=== PATIENT | female | born 1940 | race Caucasian/White ===

== ENCOUNTER 2016-11-04 14:38 | Inpatient (IN) | payer OTHER ==
[~2016-11-04] VITALS: Ht 162.6 cm; Wt 54.0 kg
[~2016-11-04 14:38] MED LIST: ACID CONTROLLER20 MG PO; ADULT LOW DOSE81 MG PO; ALPRAZOLAM0.5 MG PO; AMARYL 2MG TABLE2 MG PO; AMITIZA 24 MCG24 MCG PO; AMITIZA24 MCG PO; BRILINTA 90 MG90 MG PO; COREG3.125 MG PO; DIGOXIN125 MCG PO; LIPITOR TAB 2020 MG PO; LISINOPRIL2.5 MG PO; LORCET 5-325 M1 EACH PO; LORTAB 7.5-3251 EACH PO; METOPROLOL SUCC25 MG PO; MIDODRINE HCL5 MG PO; NEPRO CARB ST1000 ML PO; PHENERGAN 25 MG25 M1 PO; PROAMATINE 2.52.5 MG PO; PROTONIX 40 MG40 M1 PO; PROVENTIL HFA 61 INH INH; TRAMADOL HCL50 MG PO; ZOFRAN 4 MG TAB4 MG PO
[2016-11-04] MEDS ORDERED: PROVENTIL HFA 61 INH INH (18:11)
[2016-11-04] MEDS ORDERED: DOXYCYCLINE MO100 M1 PO (18:13)
[2016-11-04] MEDS ORDERED: FUROSEMIDE20 MG PO (18:14)
--- NOTE | 2016-11-05 07:23 | NUR ---
RECEIVED REPORT PATIENT REFUSED LABS THIS MORNING. WILL TRY TO ENCOURAGE
[2016-11-05 09:57] LABS: HEMOGLOBIN 8.8 gm/dl (12.3-15.3); RED BLOOD COUNT 2.91 M/UL (4.00-5.10); WHITE BLOOD COUNT 5.9 K/UL (4.5-11.0)
--- NOTE | 2016-11-05 12:31 | NUR ---
REPORTED LABS TO DR. WRIGHT AND ACKNOWLEDGED
[2016-11-08 06:26] LABS: HEMOGLOBIN 8.8 gm/dl (12.3-15.3); RED BLOOD COUNT 2.97 M/UL (4.00-5.10); WHITE BLOOD COUNT 6.4 K/UL (4.5-11.0)
[2016-11-10 06:07] LABS: RED BLOOD COUNT 3.02 M/UL (4.00-5.10); WHITE BLOOD COUNT 6.9 K/UL (4.5-11.0)
[2016-11-13 04:55] LABS: HEMOGLOBIN 8.3 gm/dl (12.3-15.3); RED BLOOD COUNT 2.78 M/UL (4.00-5.10); WHITE BLOOD COUNT 5.8 K/UL (4.5-11.0)
[2017-04-01] MEDS ORDERED: LANOXIN TAB0.125 MG PO (05:55)
[2017-04-01] MEDS ORDERED: PROTONIX40 MG PO (05:56)
[2017-04-01] MEDS ORDERED: SERTRALINE HCL25 MG PO (05:57)
[2017-04-01] MEDS ORDERED: BUMETANIDE2 MG PO (05:57)
[2017-04-01] MEDS ORDERED: ELIQUIS 5 MG TAB5 MG GT (05:58)
[2017-04-01] MEDS ORDERED: LORTAB 7.5-3251 EACH PO (06:00)
== END 2016-11-13 10:30 | DRG 291 ==
LOC: M/S 14:38
PROVIDERS: Hospitalist; Internal Medicine; ADMIT Internal Medicine Infectious Disease
PROC: 30233N1 Transfusion of Nonautologous Red Blood Cells into Peripheral Vein, Percutaneous Approach (ICD-10-PCS; principal; 2016-11-04)
PROC: 5A1D60Z (ICD-10-PCS; 2016-11-04)
DX: I50.23 Acute on chronic systolic (congestive) heart failure (principal); N18.6 End stage renal disease; E43 Unspecified severe protein-calorie malnutrition; K52.1 Toxic gastroenteritis and colitis; E87.1 Hypo-osmolality and hyponatremia; D50.9 Iron deficiency anemia, unspecified; Z99.2 Dependence on renal dialysis; R53.1 Weakness; I25.10 Atherosclerotic heart disease of native coronary artery without angina pectoris; I25.5 Ischemic cardiomyopathy; E87.5 Hyperkalemia; Z88.0 Allergy status to penicillin; Z88.2 Allergy status to sulfonamides; Z88.8 Allergy status to other drugs, medicaments and biological substances; R53.83 Other fatigue; T50.905A Adverse effect of unspecified drugs, medicaments and biological substances, initial encounter; T47.3X5A Adverse effect of saline and osmotic laxatives, initial encounter; Z95.5 Presence of coronary angioplasty implant and graft; F41.9 Anxiety disorder, unspecified; Z79.899 Other long term (current) drug therapy; I73.9 Peripheral vascular disease, unspecified; E11.51 Type 2 diabetes mellitus with diabetic peripheral angiopathy without gangrene; E11.22 Type 2 diabetes mellitus with diabetic chronic kidney disease; D63.1 Anemia in chronic kidney disease
CPT/HCPCS: 36415; 36430; 71010; 80048; 80053; 82270; 82272; 82607; 82728; 82962; 83036; 83540; 83550; 84132; 84443; 85014; 85018; 85027; 86850; 86900; 86901; 86920; 90937; 94640; 94760; 97110; 97530; 97535; J1756; J2550; J7050; P9016; P9047; Q4081

== ENCOUNTER 2016-12-02 20:24 | Inpatient (IN) | payer OTHER ==
[~2016-12-02] VITALS: Ht 162.6 cm; Wt 54.0 kg
[~2016-12-02 20:24] MED LIST changes: +DOXYCYCLINE MO100 M1 PO; +FUROSEMIDE20 MG PO
[2016-12-04 05:46] LABS: HEMOGLOBIN 10.8 gm/dl (12.3-15.3); RED BLOOD COUNT 3.68 M/UL (4.00-5.10); WHITE BLOOD COUNT 4.1 K/UL (4.5-11.0)
--- NOTE | 2016-12-05 04:59 | NUR ---
patient just refused am lab draw
[2016-12-05 13:01] LABS: HEMOGLOBIN 10.6 gm/dl (12.3-15.3); RED BLOOD COUNT 3.67 M/UL (4.00-5.10); WHITE BLOOD COUNT 5.1 K/UL (4.5-11.0)
[2016-12-06 06:43] LABS: HEMOGLOBIN 9.5 gm/dl (12.3-15.3); RED BLOOD COUNT 3.32 M/UL (4.00-5.10); WHITE BLOOD COUNT 5.1 K/UL (4.5-11.0)
[2016-12-08 04:12] LABS: RED BLOOD COUNT 3.13 M/UL (4.00-5.10)
[2016-12-08 04:31] LABS: WHITE BLOOD COUNT 3.7 K/UL (4.5-11.0)
[2016-12-08] MEDS ORDERED: ASPIR-LOW81 MG PO (17:45)
[2016-12-08] MEDS ORDERED: FERROUS SULFAT325 MG PO (17:45)
--- NOTE | 2016-12-08 18:12 | NUR ---
SPOKE WITH ALARM MECHANISM ADJUSTER ABOUT PLACEMENT FOR PT IN [facility], AFTER SHE SPOKE WITH FAMILY AND PT, SHE SAID IT WAS OK FOR PT TO BE DC HOME IN CARE OF SON. PT SON IS IN ROOM CONTACTED PRIMARY MD, PT CAN GO HOME AFTER DIALYSIS TREATMENT.
[2017-04-01] MEDS ORDERED: LANOXIN TAB0.125 MG PO (05:55)
[2017-04-01] MEDS ORDERED: PROTONIX40 MG PO (05:56)
[2017-04-01] MEDS ORDERED: SERTRALINE HCL25 MG PO (05:57)
[2017-04-01] MEDS ORDERED: BUMETANIDE2 MG PO (05:57)
[2017-04-01] MEDS ORDERED: ELIQUIS 5 MG TAB5 MG GT (05:58)
[2017-04-01] MEDS ORDERED: LORTAB 7.5-3251 EACH PO (06:00)
== END 2016-12-08 20:06 | disposition home or self-care (01) | DRG 637 ==
LOC: M/S 20:24 → MED SURG 4 23:10
PROVIDERS: Internal Medicine; ADMIT Internal Medicine
PROC: 5A1D60Z (ICD-10-PCS; principal; 2016-12-03)
DX: E11.649 Type 2 diabetes mellitus with hypoglycemia without coma (principal); G93.41 Metabolic encephalopathy; E46 Unspecified protein-calorie malnutrition; I50.22 Chronic systolic (congestive) heart failure; D61.818 Other pancytopenia; E87.1 Hypo-osmolality and hyponatremia; I13.2 Hypertensive heart and chronic kidney disease with heart failure and with stage 5 chronic kidney disease, or end stage renal disease; N18.6 End stage renal disease; E11.21 Type 2 diabetes mellitus with diabetic nephropathy; E11.22 Type 2 diabetes mellitus with diabetic chronic kidney disease; I25.10 Atherosclerotic heart disease of native coronary artery without angina pectoris; E87.5 Hyperkalemia; G89.29 Other chronic pain; M54.9 Dorsalgia, unspecified; F41.9 Anxiety disorder, unspecified; Z95.5 Presence of coronary angioplasty implant and graft; Z99.2 Dependence on renal dialysis; Z68.20 Body mass index [BMI] 20.0-20.9, adult; Z60.8 Other problems related to social environment; Z79.891 Long term (current) use of opiate analgesic; Z79.899 Other long term (current) drug therapy; Z90.49 Acquired absence of other specified parts of digestive tract; Z98.890 Other specified postprocedural states
CPT/HCPCS: 36415; 71010; 80048; 80053; 82962; 83735; 83880; 84100; 85027; 90935; 90937; 94640; 94664; 97110; 97116; 97530; G0378; G0379; J2405; J2550; J7030; J7050; P9047